=== PATIENT | male | born 1995 | race Asian ===

== ENCOUNTER 2019-10-14 08:49 | Emergency (ER) | payer SELFPAY ==
[2019-10-14 09:40] LABS: Influenza B Molecular POSITIVE (Negative)
--- NOTE | 2019-10-14 11:41 | ED ---
Influenza-Like Illness - HPI Summary HPI Summary: This patient is a 24 y/o male presenting to [facility] c/o flu like symptoms for less than 72 hours. Patient reports he has had a fever since 3 days ago. Additionally patient has had chills, nausea and body aches. Denies diarrhea, chest pain, shortness of breath. Per nurse's note, pt reported a fever of 104 F today. Patient has been taking Nyquil and Dayquil with mild relief. Patient denies recent travel out of the country. Denies any PMHx. Denies tobacco, alcohol, and drug use. - History of Current Complaint Chief Complaint: EDFluSymptoms Time Seen by Provider: 10/14/19 11:17 Hx Obtained From: Patient Onset/Duration: Lasting Days, Still Present Severity: Moderate Associated Signs & Symptoms: Fever, F/C, Myalgia - Allergy/Home Medications Allergies/Adverse Reactions: Allergies Allergy/AdvReac Type Severity Reaction Status Date / Time No Known Allergies Allergy Verified 10/15/19 17:31 Home Medications: Home Medications Ibuprofen TAB* [Motrin TAB* 600 MG] 600 mg PO Q6H PRN #30 tab 10/14/19 [Rx Confirmed 10/15/19] Oseltamivir CAP* [Tamiflu CAP*] 75 mg PO BID #10 cap 10/14/19 [Rx Confirmed ] Ondansetron ODT TAB* [Zofran 4 MG Odt TAB*] 4 mg PO Q8H PRN 4 Days #14 tab.odt 10/16/19 [Rx] PMH/Surg Hx/FS Hx/Imm Hx Endocrine/Hematology History: Denies: Hx Diabetes Respiratory History: Denies: Hx Asthma Infectious Disease History: No Infectious Disease History: Denies: Traveled Outside the [place] in Last 30 Days - Family History Known Family History: Negative: Cardiac Disease, Hypertension, Diabetes - Social History Alcohol Use: None Substance Use Type: Reports: None Smoking Status (MU): Never Smoked Tobacco Review of Systems Positive: Fever, Chills Negative: Chest Pain Negative: Shortness Of Breath Positive: Nausea. Negative: Diarrhea Positive: Myalgia All Other Systems Reviewed And Are Negative: Yes Physical Exam - Summary Physical Exam Summary: VITAL SIGNS: Reviewed. GENERAL: Patient is a well-developed and nourished male who is lying comfortable in the stretcher. Patient is not in any acute respiratory distress. HEAD AND FACE: No signs of trauma. No ecchymosis, hematomas or skull depressions. No sinus tenderness. EYES: PERRLA, EOMI x 2, No injected conjunctiva, no nystagmus. EARS: Hearing grossly intact. Ear canals and tympanic membranes are within normal limits. MOUTH: Oropharynx within normal limits. NECK: Supple, trachea is midline, no adenopathy, no JVD, no carotid bruit, no c- spine tenderness, neck with full ROM. CHEST: Symmetric, no tenderness at palpation LUNGS: Clear to auscultation bilaterally. No wheezing or crackles. CVS: Regular rate and rhythm, S1 and S2 present, no murmurs or gallops appreciated. ABDOMEN: Soft, non-tender. No signs of distention. No rebound no guarding, and no masses palpated. Bowel sounds are normal. EXTREMITIES: FROM in all major joints, no edema, no cyanosis or clubbing. NEURO: Alert and oriented x 3. No acute neurological deficits. Speech is normal and follows commands. SKIN: Dry and warm Triage Information Reviewed: Yes Vital Signs On Initial Exam: Initial Vitals Temp Pulse Resp BP Pulse Ox 97.4 F 98 18 111/68 95 10/14/19 08:52 10/14/19 08:52 10/14/19 08:52 10/14/19 08:52 10/14/19 08:52 Vital Signs Reviewed: Yes Procedures - Sedation Patient Received Moderate/Deep Sedation with Procedure: No Diagnostics - Vital Signs Vital Signs Temp Pulse Resp BP Pulse Ox 10/14/19 08:52 97.4 F 98 18 111/68 95 - Laboratory Lab Results: Lab Results 10/14/19 Range/Units 08:55 Influenza A (Rapid) Not Reportable Influenza B (Rapid) Positive H (Negative) Lab Statement: Any lab studies that have been ordered have been reviewed, and results considered in the medical decision making process. Flu Symptom Course/Dx - Course Assessment/Plan: This patient is a 24 y/o male presenting to [facility] c/o flu like symptoms for less than the past 72 hours. Patient reports he has had a fever since 3 days ago. Additionally patient has had chills, nausea and body aches. Denies diarrhea, chest pain, shortness of breath. Denies any PMHx. Denies tobacco, alcohol, and drug use. Influenza B is positive. Patient reports symptoms for less than 72 hours. Therefore he was given the Tamiflu and ibuprofen. Patient was discharged home with follow up from his PCP in 2-3 days. He was instructed to return to the ED for any worsening or new symptoms. Patient is hemodynamically stable, alert and oriented 3. - Diagnoses Provider Diagnoses: Influenza B Discharge ED - Sign-Out/Discharge Documenting (check all that apply): Patient Departure - Discharge home - Discharge Plan Condition: Stable Disposition: HOME Prescriptions: Ibuprofen TAB* [Motrin TAB* 600 MG] 600 mg PO Q6H PRN #30 tab PRN Reason: Pain - Moderate Oseltamivir CAP* [Tamiflu CAP*] 75 mg PO BID #10 cap Patient Education Materials: Influenza (ED) Referrals: [facility] [Outside] Additional Instructions: FOLLOW UP WITH YOUR PRIMARY CARE PROVIDER IN 2-3 DAYS. RETURN TO THE EMERGENCY DEPARTMENT FOR ANY WORSENING OR NEW SYMPTOMS. - Billing Disposition and Condition Condition: STABLE Disposition: Home - Attestation Statements Document Initiated by Scribe: Yes Documenting Scribe: Kristie Bagley Provider For Whom Kbibe is Documenting (Include Credential): Chris Brito MD Scribe Attestation: Kristie Hargrove scribed for Chris Brito MD on 10/16/19 at 0753. Scribe Documentation Reviewed: Yes Provider Attestation: The documentation as recorded by the Kristie wakefield accurately reflects the service I personally performed and the decisions made by me, Chris Brito MD Status of Scribe Document: Viewed
[2019-10-14] MEDS ORDERED: Ibuprofen TAB* 800 MG PO ONE (11:44)
[2019-10-14 12:13] VITALS: BP 109/70
== END 2019-10-14 12:11 | disposition home or self-care (01) ==
LOC: ED 08:49
DX: J10.1 Influenza due to other identified influenza virus with other respiratory manifestations (principal); R11.0 Nausea
CPT/HCPCS: 99282; A9270-GY

== ENCOUNTER 2019-10-15 17:29 | Emergency (ER) | payer SELFPAY ==
[2019-10-15] MEDS ORDERED: Ondansetron ODT TAB* 4 MG PO ONE (23:25)
--- NOTE | 2019-10-15 23:26 | ED ---
Influenza-Like Illness - HPI Summary HPI Summary: Patient was seen here yesterday and diagnosed with flu and started on Tamiflu. Patient states he is not feeling better, persistent nausea and vomiting. Ibuprofen taken at 10 PM. Taking Tamiflu. Denies any new symptoms. Medical history is none. - History of Current Complaint Chief Complaint: EDFluSymptoms Time Seen by Provider: 10/15/19 23:17 Hx Obtained From: Patient Onset/Duration: Gradual Onset, Lasting Days Severity: Moderate Associated Signs & Symptoms: Fever, Myalgia, Cough, Vomiting - Allergy/Home Medications Allergies/Adverse Reactions: Allergies Allergy/AdvReac Type Severity Reaction Status Date / Time No Known Allergies Allergy Verified 10/15/19 17:31 Home Medications: Home Medications Ibuprofen TAB* [Motrin TAB* 600 MG] 600 mg PO Q6H PRN #30 tab 10/14/19 [Rx Confirmed 10/15/19] Oseltamivir CAP* [Tamiflu CAP*] 75 mg PO BID #10 cap 10/14/19 [Rx Confirmed ] Ondansetron ODT TAB* [Zofran 4 MG Odt TAB*] 4 mg PO Q8H PRN 4 Days #14 tab.odt 10/16/19 [Rx] PMH/Surg Hx/FS Hx/Imm Hx Endocrine/Hematology History: Denies: Hx Diabetes Cardiovascular History: Denies: Hx Pacemaker/ICD Respiratory History: Denies: Hx Asthma History: Denies: Hx Dialysis Sensory History: Denies: Hx Eye Prosthesis Opthamlomology History: Denies: Hx Legally Blind EENT History: Denies: Hx Deafness - Immunization History Immunizations Up to Date: Yes Infectious Disease History: No Infectious Disease History: Denies: Traveled Outside the [place] in Last 30 Days - Family History Known Family History: Negative: Cardiac Disease, Hypertension, Diabetes - Social History Alcohol Use: None Substance Use Type: Reports: None Smoking Status (MU): Never Smoked Tobacco Review of Systems Positive: Fever Eyes: Negative ENT: Negative Cardiovascular: Negative Positive: Cough Positive: Vomiting, Nausea Genitourinary: Negative Positive: Myalgia Skin: Negative Positive: Headache Psychological: Normal All Other Systems Reviewed And Are Negative: Yes Physical Exam - Summary Physical Exam Summary: Abdomen soft nontender. Triage Information Reviewed: Yes Vital Signs On Initial Exam: Initial Vitals Temp Pulse Resp BP Pulse Ox 97.7 F 71 16 111/74 99 10/15/19 17:30 10/15/19 17:30 10/15/19 17:30 10/15/19 17:30 10/15/19 17:30 Vital Signs Reviewed: Yes Appearance: Positive: Well-Appearing Skin: Positive: Warm Head/Face: Positive: Normal Head/Face Inspection Eyes: Positive: Normal ENT: Positive: Pharyngeal erythema, TMs normal. Negative: Tonsillar swelling, Tonsillar exudate, Trismus, Muffled voice, Hoarse voice Neck: Positive: Supple Respiratory/Lung Sounds: Positive: Clear to Auscultation Cardiovascular: Positive: Normal Abdomen Description: Positive: Nontender Musculoskeletal: Positive: Normal Neurological: Positive: Normal Psychiatric: Positive: Normal AVPU Assessment: Alert - [place] Coma Scale Best Eye Response: 4 - Spontaneous Best Motor Response: 6 - Obeys Commands Best Verbal Response: 5 - Oriented Coma Scale Total: 15 Procedures - Sedation Patient Received Moderate/Deep Sedation with Procedure: No Diagnostics - Vital Signs Vital Signs Temp Pulse Resp BP Pulse Ox 10/15/19 22:44 99.5 F 77 16 162/64 99 10/15/19 19:29 97.9 F 88 14 121/81 99 10/15/19 17:30 97.7 F 71 16 111/74 99 - Laboratory Lab Statement: Any lab studies that have been ordered have been reviewed, and results considered in the medical decision making process. Flu Symptom Course/Dx - Course Course Of Treatment: Patient was seen here yesterday and diagnosed with flu and started on Tamiflu. Patient states he is not feeling better, persistent nausea and vomiting. Ibuprofen taken at 10 PM. Taking Tamiflu. Denies any new symptoms. Medical history is none. Vital signs within normal limits. Patient administered Zofran and 1 L normal saline. Rx for Zofran. - Diagnoses Provider Diagnoses: Flu, Nausea & vomiting Discharge ED - Sign-Out/Discharge Documenting (check all that apply): Patient Departure - Discharge Plan Condition: Stable Disposition: HOME Prescriptions: Ondansetron ODT TAB* [Zofran 4 MG Odt TAB*] 4 mg PO Q8H PRN 4 Days #14 tab.odt PRN Reason: Nausea Patient Education Materials: Influenza (ED) Referrals: No Primary Care Phys,NOPCP [Primary Care Provider] - Additional Instructions: Alternate ibuprofen 600 mg with Tylenol 650 mg every 3 hours for body aches and fever control. Take Zofran as directed for nausea and vomiting. Drink plenty of fluids to maintain hydration. Continue to take Tamiflu. Follow-up with primary care. - Billing Disposition and Condition Condition: STABLE Disposition: Home
[2019-10-15] MEDS ORDERED: NS 0.9% 1000 ML** 1,000 ML IV ONE (23:29)
[2019-10-15] MEDS ORDERED: Ondansetron INJ* 2 MG/ML VIAL IV ONE (23:29)
[2019-10-16 00:47] VITALS: BP 104/65
== END 2019-10-16 00:48 | disposition home or self-care (01) ==
LOC: ED 17:29
DX: J11.1 Influenza due to unidentified influenza virus with other respiratory manifestations (principal); R50.9 Fever, unspecified; R05 Cough; R11.2 Nausea with vomiting, unspecified
CPT/HCPCS: 96361; 96374; 99283; A9270-GY; J2405